=== PATIENT | male | born 1965 | race African-American/Black ===

== ENCOUNTER 2020-05-15 07:41 | Inpatient (IN) | payer OTHER ==
[~2020-05-15] VITALS: Ht 172.7 cm; Wt 123.4 kg
--- NOTE | 2020-05-15 07:50 | NUR ---
ER BED 2 PT BIB SELF. PT STATES THAT YESTERDAY HE STARTED TO HAVE SOME PAIN ON THE L RIB AREA BUT STATES THAT WHEN HE WOKE UP THIS MORNING, HE STARTED TO FEEL THE PAIN 'ALL ROUND MY CHEST'. HE WALKED IN TO THE ER, PT STATES THAT HE DOES NOT FEEL ANY PAIN AT THE MOMENT BUT THAT HE JUST WANTS TO MAKE SURE HE IS OKAY. PT STATES THAT HE HAS A HX OF IL AND STENT IN THE PAST. VS CHECKED. AWAITING TO BE SEEN BY .
--- NOTE | 2020-05-15 07:55 | NUR ---
EKG BEING DONE BY BEDSIDE.
--- NOTE | 2020-05-15 08:17 | NUR ---
MOVE SHEET SUBMITTED AND CALLED FOR TELE BED.
--- NOTE | 2020-05-15 08:21 | NUR ---
CHEST XRAY BEING DONE BY BEDSIDE.
[2020-05-15 08:22] LABS: BASOPHILS % (AUTO) 0.8 % (0.0-2.0); EOSINOPHILS % (AUTO) 2.7 % (0.0-6.0); HEMATOCRIT 43 % (39-51); LYMPHOCYTES # (AUTO) 1.8 /CMM (0.8-4.8); LYMPHOCYTES % (AUTO) 41.4 % (20.0-44.0); MEAN CORPUSCULAR HGB CONC 33 g/dl (31.0-36.0); MEAN CORPUSCULAR VOLUME 78 fL (80-96); MONOCYTES # (AUTO) 0.5 /CMM (0.1-1.30); MONOCYTES % (AUTO) 12.1 % (2.0-12.0); NEUTROPHILS # (AUTO) 1.9 /CMM (1.8-8.9); PLATELET COUNT (AUTO) 168 /CMM (150-450); RED BLOOD CELL COUNT(AUTO) 5.43 MIL/uL (4.5-6.0); WHITE BLOOD COUNT (AUTO) 4.5 K/uL (4.3-11.0)
[2020-05-15 08:32] LABS: CALCIUM, SERUM 9.4 mg/dL (8.5-10.1); CARBON DIOXIDE 27 mmol/L (21-32); CHLORIDE 101 mmol/L (98-107); CREATININE 1.1 mg/dL (0.6-1.3); GLUCOSE 105 mg/dL (74-106); POTASSIUM 3.5 mmol/L (3.5-5.1); SODIUM SERUM 138 mmol/L (136-145); UREA NITROGEN, BLOOD 14 mg/dL (7-18)
[2020-05-15 08:38] LABS: ALANINE AMINOTRANSFERASE 30 U/L (12-78); ALBUMIN 3.8 g/dL (3.4-5.0); ALKALINE PHOSPHATASE 54 U/L (46-116); ASPARTATE AMINOTRANSFERASE 22 U/L (15-37); BILIRUBIN,DIRECT 0.1 mg/dL (0.0-0.2); BILIRUBIN,TOTAL 0.3 mg/dL (0.2-1.0); TOTAL PROTEIN, SERUM 7.9 g/dL (6.4-8.2)
--- NOTE | 2020-05-15 09:04 | NUR ---
[facility] CALLED ANIMAL SHELTER MANAGER PAGED.
[2020-05-15] MEDS ORDERED: NITROGLYCERIN PACKET 1 GM PACKET ONE (09:23)
[2020-05-15] MEDS ORDERED: ASPIRIN 325 MG TABLET ONE (09:24)
[2020-05-15] MEDS ORDERED: MORPHINE SULFATE INJ 2 MG/ML DISP.SYRIN IV PRN (09:30)
[2020-05-15] MEDS ORDERED: ACETAMINOPHEN 325 MG TABLET PO PRN (09:30)
[2020-05-15] MEDS ORDERED: NITROGLYCERIN PACKET 1 GM PACKET TD ONE (09:30)
[2020-05-15] MEDS ORDERED: ASPIRIN 325 MG TABLET PO ONE (09:30)
[2020-05-15] MEDS ORDERED: ONDANSETRON HCL/PF 4 MG/2 ML VIAL IVP PRN (09:30)
[2020-05-15] MEDS ORDERED: NITROGLYCERIN 0.4 MG/TAB BOTTLE SL PRN ×2 (09:30→11:00)
[2020-05-15] MEDS ORDERED: ASPI-1169 PO (09:48)
--- NOTE | 2020-05-15 09:54 | NUR ---
COVID TEST DONE. SENT TO LAB
--- NOTE | 2020-05-15 10:10 | NUR ---
PT BACK FROM [facility]
--- NOTE | 2020-05-15 10:37 | NUR ---
GOT BED 306-1
[2020-05-15] MEDS ORDERED: IV NS 0.9% 500 ML IV PRN (11:00)
[2020-05-15] MEDS: METOPROLOL TARTRATE INJ 5 MG/5 ML AMPUL IVP PRN ×10 (11:01→11:46)
[2020-05-15] MEDS ORDERED: IV NS 0.9% 250 ML IV ONE (11:03)
[2020-05-15] MEDS ORDERED: IOHEXOL-350 100 ML VIAL IV ONE (11:03)
[2020-05-15] MEDS ORDERED: METOPROLOL TARTRATE INJ 5 MG/5 ML AMPUL ONE ×2 (11:22→11:36)
--- NOTE | 2020-05-15 11:42 | NUR ---
REPORT GIVEN TO BRAD IN 3WEST. PT WILL BE GOING TO 306-1.
--- NOTE | 2020-05-15 11:53 | NUR ---
Received from ER per wheelchair, denies CP or SOB, CTA heart done , given a total of Metoprolol 5mg IVP x10 doses, VSS, , procedure tolerated; wheeled back to ER; report given to Rashmi RAE Addendum: 05/15/20 at 1156 by ELLY GUERRERO RN pt with NTG patch on L chest wall; NTG SL not given
--- NOTE | 2020-05-15 12:14 | NUR ---
PT STILL IN [facility] PROCEDURE. AWAITING TO COME BACK TO THE ROOM
--- NOTE | 2020-05-15 12:40 | NUR ---
PT TRANSFERRED TO 306-.
[2020-05-15] MEDS: ASPIRIN 81 MG TAB.CHEW PO SCH (12:45)
--- NOTE | 2020-05-15 13:00 | NUR ---
MS/VARNISHER NEW ADMISSION FROM ER WITH DX OF CHEST PAIN. PATIENT FULLY ADMITTED. ORDERS NOTED AND CARRIED OUT. ORIENTED TO NEW SURROUNDINGS. CALL LIGHT WITHIN REACH, SAFETY MEASURES IN PLACE. DENIES ANY CHEST PAIN OR DISCOMFORT AT THIS TIME. TELE READING NORMAL SINUS RHYTHM. ALL QUESTIONS AND CONCERNS ADDRESSED. WILL CONTINUE TO MONITOR AND ENSURE SAFETY.
[2020-05-15] MEDS: METOPROLOL TARTRATE 50 MG TABLET PO SCH ×2 (13:20→17:51)
[2020-05-15] MEDS: ATORVASTATIN 10 MG TABLET PO SCH (13:20)
[2020-05-15 13:30] VITALS: BP 110/72
[2020-05-15 16:00] VITALS: BP 102/72
--- NOTE | 2020-05-15 16:22 | NUR ---
/RN S/B DR. COSTA S/B DR. COSTA PATIENT SCHEDULED FOR [facility] TOMORROW MORNING. CONSENT FORM SIGNED. MADE AWARE OF NPO NEED FROM MIDNIGHT.
[2020-05-15] MEDS ORDERED: METOPROLOL TARTRATE 25 MG TABLET PO SCH (17:00)
--- NOTE | 2020-05-15 18:39 | NUR ---
MS/RN CLOSING NOTE. PATIENT REMAINS IN STABLE CONDITION. VS STABLE CONTINUES TO DENY CHEST PAIN. CONSENT FORM SIGNED FOR MYOCARDIAL STRESS TEST. PATIENT MADE AWARE OF NO CAFFEINE AFTER 18OO AND NPO FROM 2400. ALL QUESTIONS AND CONCERNS ADDRESSED WILL ENDORSE TO HAZMAT TRUCK DRIVER.
--- NOTE | 2020-05-15 19:30 | NUR ---
TILT TRAY DRIVER OPENING NOTE RECEIVED PATIENT IN BED. A/OX4. TOLERATING ROOM AIR. RESPIRATIONS ARE EVEN AND UNLABORED. NO S/S SOB NOTED. NO C/O PAIN AT THIS TIME. EXTERNAL TELE MONITOR READS SINUS RHYTHM HR 81.IN NO APPARENT DISTRESS. IV ACCESS IN LAC#20 PATENT AND SALINE LOCKED. HOB ELEVATED IN SEMI FOWLERS, SIDE RAILS UP X2, CALL LIGHT WITHIN REACH. WILL CONTINUE TO MONITOR.
[2020-05-15 20:00] VITALS: BP 114/77
[2020-05-16] VITALS: BP_SYST 151; BP_SYST 154; BP_DIAS 63; BP_DIAS 92
[2020-05-16] MEDS: METOPROLOL TARTRATE 50 MG TABLET PO SCH ×3 (00:26→12:07)
[2020-05-16 04:00] VITALS: BP 127/92
--- NOTE | 2020-05-16 06:36 | NUR ---
SENIOR ACCOUNTING CLERK CLOSING NOTE PATIENT IS RESTING IN BED. A/OX4. REMAINS TOLERATING ROOM AIR. NO RESP DISTRESS. NO C/O PAIN THROUGHOUT SHIFT. EXTERNAL TELE MONITOR READS SINUS RHYTHM. NO DISTRESS. IV ACCESS MAINTAINED IN LAC#20 PATENT AND SALINE LOCKED. BED IS LOW AND LOCKED, HOB ELEVATED IN SEMI FOWLERS, SIDE RAILS UP X2, CALL LIGHT WITHIN REACH. WILL ENDORSE TO NEXT SHIFT.
[2020-05-16] MEDS ORDERED: REGADENOSON 0.4 MG/5 ML DISP.SYRIN IVP ONE (08:00)
--- NOTE | 2020-05-16 08:00 | NUR ---
RN Opening Note Received patient in bed resting, AO x 4 able to responds all stimuli, patient going Lexiscan today and singed consent, keep NPO status. Respiratory even and unlabored on room air, O2sat 97%, no distress observed, denies chest pain at this time. Keep locked bed with elevated HOB for ensure airway, and lowest position for safety. Call light within reach, will continue to monitor.
[2020-05-16 08:07] VITALS: BP 129/92
[2020-05-16] MEDS ORDERED: ASPIRIN 81 MG TAB.CHEW PO SCH (09:00)
[2020-05-16] MEDS: ASPIRIN 81 MG TAB.CHEW PO SCH (10:41)
[2020-05-16] MEDS: ATORVASTATIN 10 MG TABLET PO SCH (10:42)
[2020-05-16 10:47] LABS: BASOPHILS % (AUTO) 0.9 % (0.0-2.0); EOSINOPHILS % (AUTO) 1.1 % (0.0-6.0); HEMATOCRIT 45 % (39-51); HEMOGLOBIN 14.8 g/dL (13.5-17.5); LYMPHOCYTES # (AUTO) 1.3 /CMM (0.8-4.8); LYMPHOCYTES % (AUTO) 26.5 % (20.0-44.0); MEAN CORPUSCULAR HGB CONC 33 g/dl (31.0-36.0); MEAN CORPUSCULAR VOLUME 79 fL (80-96); MONOCYTES # (AUTO) 0.4 /CMM (0.1-1.30); MONOCYTES % (AUTO) 8.3 % (2.0-12.0); NEUTROPHILS % (AUTO) 63.2 % (43.0-81.0); PLATELET COUNT (AUTO) 196 /CMM (150-450); RED BLOOD CELL COUNT(AUTO) 5.73 MIL/uL (4.5-6.0); WHITE BLOOD COUNT (AUTO) 4.8 K/uL (4.3-11.0)
[2020-05-16 11:02] LABS: CALCIUM, SERUM 9.4 mg/dL (8.5-10.1); CREATININE 1.2 mg/dL (0.6-1.3); MAGNESIUM 1.9 mg/dL (1.8-2.4); POTASSIUM 3.7 mmol/L (3.5-5.1)
[2020-05-16 12:07] VITALS: BP 130/81
--- NOTE | 2020-05-16 14:50 | NUR ---
Given discharge instruction include follow up PCP after discharge and oral fluid intake for urine out for nuclear medicine, also provided CD from [place] stress test image. Patient left facility accompanied by staff to private car, Pt in stable condition.
== END 2020-05-16 15:00 | disposition home or self-care (01) | DRG 303 ==
LOC: ER 07:51 → TELE 10:58 → MED 05-16 08:14
PROVIDERS: ADMIT Internal Medicine; ATTEND Internal Medicine
DX: I25.110 Atherosclerotic heart disease of native coronary artery with unstable angina pectoris (principal); I10 Essential (primary) hypertension; Z95.5 Presence of coronary angioplasty implant and graft; F41.0 Panic disorder [episodic paroxysmal anxiety]; I25.2 Old myocardial infarction; Z79.82 Long term (current) use of aspirin
CPT/HCPCS: 36415; 71045-TC; 75574; 80048-TC; 80061-TC; 80076-TC; 83735-TC; 84100-TC; 84484-TC; 85025-TC; 87081-TC; 93307-TC; A9502; C9803; G0378; J2785; J3490; J7050; Q9967

== ENCOUNTER 2023-08-18 20:48 | Emergency (ER) | payer OTHER ==
[~2023-08-18] VITALS: Ht 175.3 cm; Wt 124.7 kg
[~2023-08-18 20:48] MED LIST: ASPI-1169 PO
[2023-08-18 21:59] VITALS: TEMP 98.2
[2023-08-18 22:46] LABS: BASOPHILS # (AUTO) 0.1 K/uL (0.0-0.2); BASOPHILS % (AUTO) 1.4 % (0.0-2.0); EOSINOPHILS # (AUTO) 0.1 K/uL (0.0-0.7); EOSINOPHILS % (AUTO) 1.4 % (0.0-6.0); HEMATOCRIT 43 % (39-51); LYMPHOCYTES # (AUTO) 1.3 K/uL (0.8-4.8); LYMPHOCYTES % (AUTO) 22.4 % (20.0-44.0); MEAN CORPUSCULAR HEMOGLOBIN 26 PG (26.0-33.0); MEAN CORPUSCULAR HGB CONC 33 g/dl (31.0-36.0); MEAN CORPUSCULAR VOLUME 78 fL (80-96); MONOCYTES # (AUTO) 0.3 K/uL (0.1-1.30); NEUTROPHILS # (AUTO) 3.8 K/uL (1.8-8.9); NEUTROPHILS % (AUTO) 68.8 % (43.0-81.0); PLATELET COUNT (AUTO) 208 K/uL (150-450); RED BLOOD CELL COUNT(AUTO) 5.44 MIL/uL (4.5-6.0); RED CELL DISTRIBUTION WIDTH 13.7 % (11.5-15.0); WHITE BLOOD COUNT (AUTO) 5.6 K/uL (4.3-11.0)
[2023-08-18 22:55] LABS: CALCIUM, SERUM 9.5 mg/dL (8.5-10.1); CARBON DIOXIDE 25 mmol/L (21-32); CHLORIDE 102 mmol/L (98-107); CREATININE 1.1 mg/dL (0.6-1.3); GLUCOSE 101 mg/dL (74-106); POTASSIUM 3.5 mmol/L (3.5-5.1); SODIUM SERUM 138 mmol/L (136-145); UREA NITROGEN, BLOOD 13 mg/dL (7-18)
[2023-08-18 22:57] LABS: INR 1.03 (0.91-1.10); PARTIAL THROMBOPLASTIN TIME 29.7 SEC (24.3-34.3); PROTHROMBIN TIME 10.9 SECS (9.2-11.1)
[2023-08-18 23:07] LABS: ALANINE AMINOTRANSFERASE 21 U/L (12-78); ALBUMIN 3.8 g/dL (3.4-5.0); ALKALINE PHOSPHATASE 71 U/L (46-116); ASPARTATE AMINOTRANSFERASE 21 U/L (15-37); BILIRUBIN,DIRECT 0.1 mg/dL (0.0-0.2); BILIRUBIN,TOTAL 0.4 mg/dL (0.2-1.0); TOTAL PROTEIN, SERUM 8.4 g/dL (6.4-8.2)
[2023-08-19 01:30] VITALS: O2SAT 94
[2023-08-19 02:26] VITALS: BP 155/78
== END 2023-08-19 02:26 | disposition home or self-care (01) ==
LOC: ER 20:49
DX: F41.9 Anxiety disorder, unspecified (principal); I10 Essential (primary) hypertension; I25.2 Old myocardial infarction
CPT/HCPCS: 36415; 71045-TC; 80048-TC; 80076-TC; 84484-TC; 85025-TC; 85730-TC